=== PATIENT | female | born 1980 | race American Indian/Alaskan Native ===

== ENCOUNTER 2016-09-13 12:24 | Emergency (ER) | payer OTHER ==
[2016-09-13 14:32] LABS: Basophils % (Auto) 0.6 % (0.0-1.8); Eosinophils % (Auto) 0.9 % (0.0-4.3); Hematocrit 32.7 % (30.3-42.9); Hemoglobin 10.5 gm/dl (10.1-14.3); Mean Corpuscular HGB Conc 32 % (30-34); Platelet Count 255 K/mm3 (140-440); Red Blood Count 4.78 M/mm3 (3.65-5.03); Red Cell Distribution Width 17.8 % (13.2-15.2); White Blood Count 4.7 K/mm3 (4.5-11.0)
[2016-09-13 14:36] LABS: Mean Corpuscular Hemoglobin 22 pg (28-32); Mean Corpuscular Volume 68 fl (79-97)
--- NOTE | 2016-09-13 16:04 | Cat Scan Report ---
CT scan of head without contrast: History: Headache. Findings: Ventricles are normal in size and midline in location. No evidence of acute ischemia, hemorrhage or mass. No extra-axial fluid collection. Normal brainstem and cerebellum. Normal sinuses and mastoid air cells. Impression: No acute intracranial abnormality.
[2016-09-13 16:12] LABS: Anion Gap 16 mmol/L; Blood Urea Nitrogen 7 mg/dL (7-17); Calcium 8.8 mg/dL (8.4-10.2); Carbon Dioxide 24 mmol/L (22-30); Chloride 101.3 mmol/L (98-107); Glucose 112 mg/dL (65-100); Potassium 3.5 mmol/L (3.6-5.0); Sodium 138 mmol/L (137-145)
[2016-09-13] MEDS ORDERED: PERCOCET 5/325 PO PRN (23:53)
[2016-09-13] MEDS ORDERED: TORADOL IM ONE (23:53)
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
[2016-09-14 00:20] VITALS: BP 134/78
== END 2016-09-14 00:29 | disposition home or self-care (01) ==
LOC: ED 12:24
DX: R03.0 Elevated blood-pressure reading, without diagnosis of hypertension (principal); Z98.51 Tubal ligation status
CPT/HCPCS: 36415; 70450; 80048; 85025; 96372; 99284; J1885

== ENCOUNTER 2019-08-12 22:34 | Emergency (ER) | payer MEDICAID, OTHER ==
[2019-08-13 00:25] LABS: Basophils % (Auto) 0.6 % (0.0-1.8); Eosinophils % (Auto) 0.3 % (0.0-4.3); Hematocrit 26.6 % (30.3-42.9); Hemoglobin 8.1 gm/dl (10.1-14.3); Lymphocytes # (Auto) 1.5 K/mm3 (1.2-5.4); Lymphocytes % (Auto) 20.8 % (13.4-35.0); Mean Corpuscular HGB Conc 31 % (30-34); Monocytes # (Auto) 0.6 K/mm3 (0.0-0.8); Monocytes % (Auto) 7.9 % (0.0-7.3); Platelet Count 389 K/mm3 (140-440); Red Blood Count 4.57 M/mm3 (3.65-5.03)
[2019-08-13 00:32] LABS: Mean Corpuscular Volume 58 fl (79-97); Red Cell Distribution Width 20.3 % (13.2-15.2)
[2019-08-13 00:54] LABS: Alanine Aminotransferase 9 units/L (7-56); Albumin 4.3 g/dL (3.9-5); BUN/Creatinine Ratio 10; Blood Urea Nitrogen 8 mg/dL (7-17); Calcium 9.2 mg/dL (8.4-10.2); Hemolysis Index 0
[2019-08-13] MEDS ORDERED: KETOROLAC 30 MG/1 ML INJ IM ONE (03:52)
[2019-08-13] MEDS ORDERED: FAMOTIDINE 20 MG TAB PO ONE (03:52)
[2019-08-13] MEDS ORDERED: ACETAMINOPHEN 500 MG TAB PO ONE (03:52)
--- NOTE | 2019-08-13 03:55 | Emergency Department Report ---
ED General Adult HPI - General Chief complaint: Chest Pain Stated complaint: CHEST PAINM SOB Time Seen by Provider: 08/13/19 03:39 Source: patient, RN notes reviewed Mode of arrival: Ambulatory Limitations: No Limitations - History of Present Illness Initial comments: The patient is a pleasant 39-year-old female. She is not known to myself previously. Her primary care doctor is Dr. Nataliia Coon. Has a history of cholecystectomy. The patient presents to the ER today with a non-traumatic right-sided chest wall pain. It started very suddenly last night. The pain is throbbing and sharp, increases with palpation and deep inspiration, and decrea ses with rest. There is no vomiting, diaphoresis or exertional shortness of breath. The patient denies DVT and pulmonary embolism risk factors. There is no headache, neck pain, there is no lower abdominal pain, no irritative or obstructive urinary symptoms. Her pain is improved with intramuscular ketorolac. -: Sudden Location: chest Radiation: non-radiation Quality: other Consistency: other Improves with: other Worsens with: other - Related Data Previous Rx's Medication Instructions Recorded Last Taken Type Ketorolac [Toradol] 10 mg PO Q6H PRN #20 tablet 09/14/16 Unknown Rx Acetaminophen [Non-Aspirin Extra 500 mg PO Q6HR PRN #30 tablet 08/13/19 Unknown Rx Strength] Ibuprofen [Motrin] 600 mg PO Q8H PRN #30 tablet 08/13/19 Unknown Rx Allergies Allergy/AdvReac Type Severity Reaction Status Date / Time No Known Allergies Allergy Unverified 09/13/16 13:28 ED Review of Systems ROS: Stated complaint: CHEST PAINM SOB Other details as noted in HPI Constitutional: denies: fever Eyes: denies: eye discharge ENT: denies: congestion Respiratory: other (Pleuritic chest pain, no exertional shortness of breath) Cardiovascular: chest pain Gastrointestinal: denies: abdominal pain, nausea, vomiting, hematemesis, melena, hematochezia Genitourinary: denies: dysuria Musculoskeletal: back pain Skin: denies: lesions Neurological: denies: weakness Hematological/Lymphatic: denies: easy bleeding ED Past Medical Hx - Past Medical History Previous Medical History?: No - Surgical History Past Surgical History?: Yes Hx Cholecystectomy: Yes Additional Surgical History: Tubal Ligation - Social History Smoking Status: Current Every Day Smoker Substance Use Type: None - Medications Home Medications: Home Medications Medication Instructions Recorded Confirmed Last Taken Type Ketorolac [Toradol] 10 mg PO Q6H PRN #20 tablet 09/14/16 Unknown Rx Acetaminophen [Non-Aspirin Extra 500 mg PO Q6HR PRN #30 tablet 08/13/19 Unknown Rx Strength] Ibuprofen [Motrin] 600 mg PO Q8H PRN #30 tablet 08/13/19 Unknown Rx ED Physical Exam - General Limitations: No Limitations General appearance: alert, in no apparent distress, obese - Head Head exam: Present: atraumatic, normocephalic - Eye Eye exam: Present: normal appearance, EOMI - ENT ENT exam: Present: normal exam, normal orophraynx, mucous membranes moist, normal external ear exam - Neck Neck exam: Present: normal inspection, full ROM. Absent: tenderness, meningismus - Respiratory Respiratory exam: Present: normal lung sounds bilaterally, chest wall tenderness, other (Chaperoned by nurse Isha Ibarra). Absent: respiratory distress, wheezes, rales, rhonchi, stridor - Cardiovascular Cardiovascular Exam: Present: normal rhythm, tachycardia, normal heart sounds. Absent: systolic murmur, diastolic murmur, rubs, gallop - GI/Abdominal GI/Abdominal exam: Present: soft, other (There is no right lower quadrant te nderness. There is a negative Velasco sign.). Absent: distended, tenderness, guarding, rebound, rigid, pulsatile mass - Extremities Exam Extremities exam: Present: normal inspection, full ROM, other (2+ pulses noted in the bilateral upper and lower extremities. There is no palpable cord. negative Homans sign. Muscular compartments are soft. The pelvis is stable.). Absent: pedal edema, calf tenderness - Back Exam Back exam: Present: normal inspection. Absent: tenderness, CVA tenderness (R), CVA tenderness (L), paraspinal tenderness, vertebral tenderness - Neurological Exam Neurological exam: Present: alert, normal gait, other (There is no facial droop. The tongue is midline. Extraocular movements are intact bilaterally. There is 5 out of 5 strength in bilateral upper and lower extremities. Sensation is intact to light touch bilateral upper and lower extremities. There is a normal gait.). Absent: motor sensory deficit - Psychiatric Psychiatric exam: Present: anxious - Skin Skin exam: Present: warm, dry, intact, normal color. Absent: rash ED Course Vital Signs 08/12/19 08/12/19 08/13/19 22:44 22:51 03:55 Temperature 98.1 F 98.5 F 98.2 F Pulse Rate 108 H 101 H 78 Respiratory 20 20 16 Rate Blood Pressure 185/107 145/89 Blood Pressure 144/77 [Left] O2 Sat by Pulse 100 100 100 Oximetry 08/13/19 08/13/19 04:00 04:02 Temperature Pulse Rate Respiratory 16 16 Rate Blood Pressure Blood Pressure [Left] O2 Sat by Pulse Oximetry - Reevaluation(s) Reevaluation #1: 08/13/19 06:47 Microcytic anemia reviewed and appreciated, this is incidental, and patient does not endorse symptoms consistent with symptomatic anemia. She can follow-up with her outpatient primary care doctor for this incidental finding. ED Medical Decision Making - Lab Data Result diagrams: 08/13/19 00:06 08/13/19 00:06 Vital Signs 08/12/19 08/12/19 08/13/19 22:44 22:51 03:55 Temperature 98.1 F 98.5 F 98.2 F Pulse Rate 108 H 101 H 78 Respiratory 20 20 16 Rate Blood Pressure 185/107 145/89 Blood Pressure 144/77 [Left] O2 Sat by Pulse 100 100 100 Oximetry 08/13/19 08/13/19 04:00 04:02 Temperature Pulse Rate Respiratory 16 16 Rate Blood Pressure Blood Pressure [Left] O2 Sat by Pulse Oximetry Lab Results 08/13/19 08/13/19 08/13/19 Range/Units 00:06 00:06 00:06 WBC 7.2 (4.5-11.0) K/mm3 RBC 4.57 (3.65-5.03) M/mm3 Hgb 8.1 L (10.1-14.3) gm/dl Hct 26.6 L (30.3-42.9) % MCV 58 L (79-97) fl MCH 18 L (28-32) pg MCHC 31 (30-34) % RDW 20.3 H (13.2-15.2) % Plt Count 389 (140-440) K/mm3 Lymph % (Auto) 20.8 (13.4-35.0) % [place] % (Auto) 7.9 H (0.0-7.3) % Eos % (Auto) 0.3 (0.0-4.3) % Baso % (Auto) 0.6 (0.0-1.8) % Lymph # 1.5 (1.2-5.4) K/mm3 [place] # 0.6 (0.0-0.8) K/mm3 Eos # 0.0 (0.0-0.4) K/mm3 Baso # 0.0 (0.0-0.1) K/mm3 Seg Neutrophils % 70.4 H (40.0-70.0) % Seg Neutrophils # 5.1 (1.8-7.7) K/mm3 PT (12.2-14.9) Sec. INR (0.87-1.13) D-Dimer (0-234) ng/mlDDU Sodium 140 (137-145) mmol/L Potassium 4.1 (3.6-5.0) mmol/L Chloride 104.4 (98-107) mmol/L Carbon Dioxide 22 (22-30) mmol/L Anion Gap 18 mmol/L BUN 8 (7-17) mg/dL Creatinine 0.8 (0.7-1.2) mg/dL Estimated GFR > 60 ml/min BUN/Creatinine Ratio 10 % Glucose 106 H (65-100) mg/dL Calcium 9.2 (8.4-10.2) mg/dL Magnesium (1.7-2.3) mg/dL Total Bilirubin 0.40 (0.1-1.2) mg/dL AST 18 (5-40) units/L ALT 9 (7-56) units/L Alkaline Phosphatase 105 (35-129) units/L Total Creatine Kinase (30-135) units/L Troponin T (0.00-0.029) ng/mL Total Protein 8.3 H (6.3-8.2) g/dL Albumin 4.3 (3.9-5) g/dL Albumin/Globulin Ratio 1.1 % Lipase (13-60) units/L HCG, Qual Negative (Negative) Urine Color (Yellow) Urine Turbidity (Clear) Urine pH (5.0-7.0) Ur Specific [place] (1.003-1.030) Urine Protein (Negative) mg/dL Urine Glucose (UA) (Negative) mg/dL Urine Ketones (Negative) mg/dL Urine Blood (Negative) Urine Nitrite (Negative) Urine Bilirubin (Negative) Urine Urobilinogen (<2.0) mg/dL Ur Leukocyte Esterase (Negative) Urine WBC (Auto) (0.0-6.0) /HPF Urine RBC (Auto) (0.0-6.0) /HPF U Epithel Cells (Auto) (0-13.0) /HPF Urine Bacteria (Auto) (Negative) /HPF Urine Mucus /HPF 08/13/19 08/13/19 08/13/19 Range/Units 00:06 00:11 03:55 WBC (4.5-11.0) K/mm3 RBC (3.65-5.03) M/mm3 Hgb (10.1-14.3) gm/dl Hct (30.3-42.9) % MCV (79-97) fl MCH (28-32) pg MCHC (30-34) % RDW (13.2-15.2) % Plt Count (140-440) K/mm3 Lymph % (Auto) (13.4-35.0) % [place] % (Auto) (0.0-7.3) % Eos % (Auto) (0.0-4.3) % Baso % (Auto) (0.0-1.8) % Lymph # (1.2-5.4) K/mm3 [place] # (0.0-0.8) K/mm3 Eos # (0.0-0.4) K/mm3 Baso # (0.0-0.1) K/mm3 Seg Neutrophils % (40.0-70.0) % Seg Neutrophils # (1.8-7.7) K/mm3 PT (12.2-14.9) Sec. INR (0.87-1.13) D-Dimer (0-234) ng/mlDDU Sodium (137-145) mmol/L Potassium (3.6-5.0) mmol/L Chloride (98-107) mmol/L Carbon Dioxide (22-30) mmol/L Anion Gap mmol/L BUN (7-17) mg/dL Creatinine (0.7-1.2) mg/dL Estimated GFR ml/min BUN/Creatinine Ratio % Glucose (65-100) mg/dL Calcium (8.4-10.2) mg/dL Magnesium (1.7-2.3) mg/dL Total Bilirubin (0.1-1.2) mg/dL AST (5-40) units/L ALT (7-56) units/L Alkaline Phosphatase (35-129) units/L Total Creatine Kinase (30-135) units/L Troponin T < 0.010 (0.00-0.029) ng/mL Total Protein (6.3-8.2) g/dL Albumin (3.9-5) g/dL Albumin/Globulin Ratio % Lipase 19 (13-60) units/L HCG, Qual (Negative) Urine Color Yellow (Yellow) Urine Turbidity Clear (Clear) Urine pH 5.0 (5.0-7.0) Ur Specific [place] 1.009 (1.003-1.030) Urine Protein <15 mg/dl (Negative) mg/dL Urine Glucose (UA) Neg (Negative) mg/dL Urine Ketones Neg (Negative) mg/dL Urine Blood Lg (Negative) Urine Nitrite Neg (Negative) Urine Bilirubin Neg (Negative) Urine Urobilinogen < 2.0 (<2.0) mg/dL Ur Leukocyte Esterase Tr (Negative) Urine WBC (Auto) 2.0 (0.0-6.0) /HPF Urine RBC (Auto) > 182.0 (0.0-6.0) /HPF U Epithel Cells (Auto) 1.0 (0-13.0) /HPF Urine Bacteria (Auto) 1+ (Negative) /HPF Urine Mucus Few /HPF 08/13/19 08/13/19 Range/Units 04:12 04:12 WBC (4.5-11.0) K/mm3 RBC (3.65-5.03) M/mm3 Hgb (10.1-14.3) gm/dl Hct (30.3-42.9) % MCV (79-97) fl MCH (28-32) pg MCHC (30-34) % RDW (13.2-15.2) % Plt Count (140-440) K/mm3 Lymph % (Auto) (13.4-35.0) % [place] % (Auto) (0.0-7.3) % Eos % (Auto) (0.0-4.3) % Baso % (Auto) (0.0-1.8) % Lymph # (1.2-5.4) K/mm3 [place] # (0.0-0.8) K/mm3 Eos # (0.0-0.4) K/mm3 Baso # (0.0-0.1) K/mm3 Seg Neutrophils % (40.0-70.0) % Seg Neutrophils # (1.8-7.7) K/mm3 PT 14.9 (12.2-14.9) Sec. INR 1.15 H (0.87-1.13) D-Dimer 406.35 H (0-234) ng/mlDDU Sodium (137-145) mmol/L Potassium (3.6-5.0) mmol/L Chloride (98-107) mmol/L Carbon Dioxide (22-30) mmol/L Anion Gap mmol/L BUN (7-17) mg/dL Creatinine (0.7-1.2) mg/dL Estimated GFR ml/min BUN/Creatinine Ratio % Glucose (65-100) mg/dL Calcium (8.4-10.2) mg/dL Magnesium 1.80 (1.7-2.3) mg/dL Total Bilirubin (0.1-1.2) mg/dL AST (5-40) units/L ALT (7-56) units/L Alkaline Phosphatase (35-129) units/L Total Creatine Kinase 113 (30-135) units/L Troponin T < 0.010 (0.00-0.029) ng/mL Total Protein (6.3-8.2) g/dL Albumin (3.9-5) g/dL Albumin/Globulin Ratio % Lipase (13-60) units/L HCG, Qual (Negative) Urine Color (Yellow) Urine Turbidity (Clear) Urine pH (5.0-7.0) Ur Specific [place] (1.003-1.030) Urine Protein (Negative) mg/dL Urine Glucose (UA) (Negative) mg/dL Urine Ketones (Negative) mg/dL Urine Blood (Negative) Urine Nitrite (Negative) Urine Bilirubin (Negative) Urine Urobilinogen (<2.0) mg/dL Ur Leukocyte Esterase (Negative) Urine WBC (Auto) (0.0-6.0) /HPF Urine RBC (Auto) (0.0-6.0) /HPF U Epithel Cells (Auto) (0-13.0) /HPF Urine Bacteria (Auto) (Negative) /HPF Urine Mucus /HPF - EKG Data -: EKG Interpreted by Me EKG shows normal: sinus rhythm, axis, intervals, QRS complexes, ST-T waves Rate: normal - EKG Data When compared to previous EKG there are: previous EKG unavailable Interpretation: normal EKG 08/13/19 06:43 EKG #1 shows a sinus tachycardia, 106 bpm, high left ventricular voltage, motion artifact, no prior for comparison, not a STEMI. EKG #2 was unchanged from prior, high left ventricular voltage is noted, the EKG is not consistent with STEMI - Radiology Data Radiology results: pending, report reviewed, image reviewed X-ray of the chest is negative for acute disease. CT scan of the chest with IV contrast is negative for acute disease. - Medical Decision Making Differential diagnosis, including but not limited to: Costochondritis, pleurisy, pneumonia, pericarditis, myocarditis, acute coronary syndrome, pulmonary embolism Assessment and plan: 39-year-old obese female with right sided pleuritic chest pain that started suddenly, with associated tachycardia, chest pain is reproducible, troponin negative x2, EKG unchanged x2, low risk for major adverse cardiac event as per heart score, was low risk by Wells criteria, low pretest probability for pulmonary embolism, however, d-dimer elevated, therefore, CT sca n of the chest ordered, obtained, and negative for acute disease. Pain is improved, tachycardia resolved, patient feels comfortable to be discharged and follow-up as an outpatient. We discussed return precautions. Most likely diagnosis is either costochondritis or pleurisy, or both. Critical care attestation.: If time is entered above; I have spent that time in minutes in the direct care of this critically ill patient, excluding procedure time. ED Disposition Clinical Impression: Pleuritic chest pain Disposition: DC-01 TO HOME OR SELFCARE Is pt being admited?: No Does the pt Need Aspirin: No Condition: Stable Instructions: Costochondritis (ED), Pleurisy (ED) Additional Instructions: Rest, avoid heavy lifting, and avoid strenuous physical activities. Take the pain medications as needed and directed. Avoid consumption of heavy and/or spicy foods. 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 Please return to the emergency room right away with new, worsened or different symptoms not present on the initial emergency room evaluation. Referrals: NATALIIA COON MD [Primary Care Provider] - 3-5 Days [facility] [Provider Group] - 3-5 Days [facility] [Provider Group] - 3-5 Days
[2019-08-13 04:28] LABS: Bacteria,Urine 1+ /HPF (Negative); Bilirubin,Urine NEG (Negative); Blood,Urine LG (Negative); Color,Urine Yellow (Yellow); Mucus,Urine FEW /HPF; Protein,Urine <15 mg/dL mg/dL (Negative); RBC,Urine > 182.0 /HPF (0.0-6.0); Urobilinogen,Urine < 2.0 mg/dL (<2.0)
[2019-08-13 04:32] LABS: INR 1.15 (0.87-1.13)
--- NOTE | 2019-08-13 04:33 | XRay Report ---
CHEST 2 VIEWS INDICATION / CLINICAL INFORMATION: Acute right pleuritic chest pain. COMPARISON: None available. FINDINGS: SUPPORT DEVICES: None. HEART / MEDIASTINUM: No significant abnormality. LUNGS / PLEURA: No significant pulmonary or pleural abnormality. No pneumothorax. ADDITIONAL FINDINGS: No significant additional findings. IMPRESSION: 1. No acute abnormality of the chest. Signer Name: Marcos Méndez MD Signed: 08/13/2019 4:29 AM Workstation Name: [id number]
--- NOTE | 2019-08-13 06:19 | Cat Scan Report ---
CTA CHEST WITH IV CONTRAST INDICATION: acute right sided pleuritic chest pain. TECHNIQUE: Axial CT images were obtained through the chest after injection of 100 cc Omnipaque 350 IV contrast. 3 plane MIP reconstructions were produced. All CT scans at this location are performed using CT dose reduction for ALARA by means of automated exposure control. COMPARISON: 2 views of the chest from earlier today. FINDINGS: PULMONARY ARTERIES: Well-opacified without distinct thromboemboli. AORTA AND ARTERIES: No acute abnormality. MEDIASTINUM: There are multiple right thyroid nodules measuring up to 1.8 cm. The trachea and main br onchi are patent and normal in caliber. No mass or lymphadenopathy. No significant abnormality of the heart. LUNGS: No suspicious consolidation, nodule or mass. No pneumothorax or pleural effusion. ADDITIONAL FINDINGS: None. UPPER ABDOMEN: No acute findings. BONES: No acute abnormality. Degenerative changes are noted throughout the spine. IMPRESSION: 1. No CT evidence for pulmonary embolism. 2. No acute abnormality of the chest. 3. Multiple right thyroid nodules. A nonemergent thyroid ultrasound is recommended for further evalua tion. Signer Name: Marcos Méndez MD Signed: 08/13/2019 6:15 AM Workstation Name: [id number]
[2019-08-13 07:37] VITALS: BP 132/72
== END 2019-08-13 07:26 | disposition home or self-care (01) ==
LOC: ED 22:34
DX: R07.89 Other chest pain (principal); F17.200 Nicotine dependence, unspecified, uncomplicated; Z90.49 Acquired absence of other specified parts of digestive tract
CPT/HCPCS: 36415; 71046; 71275; 80053; 81001; 82550; 83690; 83735; 84484; 84703; 85025; 85379; 85610; 93005; 93010; 96372; 99285; J1885; Q9967